=== PATIENT | male | born 1975 | race Caucasian/White ===

== ENCOUNTER 2023-10-08 12:56 | Emergency (ER) | payer MEDICAID, OTHER ==
[~2023-10-08] VITALS: Ht 165.1 cm; Wt 68.2 kg
[2023-10-08] MEDS: SODIUM CHLORIDE 0.9% 1,000 ML IV ONE (13:34)
[2023-10-08] MEDS ORDERED: CEPH250C PO (14:34)
[2023-10-08 14:49] VITALS: BP 138/89; PULSE 86; RESP 18; O2SAT 97
== END 2023-10-08 16:41 | disposition home or self-care (01) ==
LOC: EDBD 12:56 → ER 12:56
DX: S02.2XXA Fracture of nasal bones, initial encounter for closed fracture (principal); F10.129 Alcohol abuse with intoxication, unspecified; F17.210 Nicotine dependence, cigarettes, uncomplicated; F12.10 Cannabis abuse, uncomplicated; W18.09XA Striking against other object with subsequent fall, initial encounter; Y93.89 Activity, other specified; Y92.89 Other specified places as the place of occurrence of the external cause; Y99.8 Other external cause status; Y90.8 Blood alcohol level of 240 mg/100 ml or more
CPT/HCPCS: 36415; 70486; 80320; 96360; 99284; J7030

== ENCOUNTER 2024-04-20 10:39 | Inpatient (IN) | payer MEDICAID ==
[~2024-04-20] VITALS: Ht 165.1 cm; Wt 52.9 kg
[~2024-04-20 10:39] MED LIST: CEPH250C PO
[2024-04-20 11:05] LABS: Basophils # (auto) 0 10 ^3/uL (0-0.2); Basophils % (auto) 0.8 % (0.0-2.0); Eosinophils # (auto) 0 10 ^3/uL (0-0.8); Eosinophils % (auto) 0.8 % (0.0-7.0); Hematocrit 47.1 % (41.0-53.0); Hemoglobin 15.9 g/dL (13.5-17.5); Lymphocytes # (auto) 1.9 10 ^3/uL (0.4-5.4); Lymphocytes % (auto) 34.4 % (10.0-50.0); Mean Corpuscular Hemoglobin 30.3 pg (28.0-32.0); Mean Corpuscular Hgb Conc. 33.7 g/dL (32.0-36.0); Mean Corpuscular Volume 89.9 fL (80.0-100.0); Monocytes # (auto) 0.3 10 ^3/uL (0-1.3); Monocytes % (auto) 5.1 % (0.0-12.0); Neutrophils # (auto) 3.2 10 ^3/uL (1.6-8.6); Neutrophils % (auto) 58.9 % (37.0-80.0); Platelet Count (auto) 86 10^3/uL (140-450); Red Blood Cells 5.24 10^6/uL (4.5-5.90); Red Cell Distribution Width 14.4 % (11.8-14.3); White Blood Cell 5.4 10^3/uL (4.4-10.8)
[2024-04-20 11:15] LABS: INR 0.97 (0.9-1.15); Partial Thromboplastin Time 24.6 SEC (24.5-34.5); Prothrombin Time 10.3 sec (9.3-11.8)
--- NOTE | 2024-04-20 11:21 | DVH ---
EXAM: XY CHEST PORTABLE Indication: SOB Technique: Single frontal view of the chest was obtained Comparison: None FINDINGS: Lines and Tubes: None Lungs: No focal consolidation. Pleura: No effusion. No pneumothorax. Cardiomediastinal contours: Unremarkable Bones: No acute osseous abnormality. IMPRESSION: No acute cardiopulmonary disease.
--- NOTE | 2024-04-20 11:23 | ED.PDOC ---
SOB-HPI HPI Comments 49 year old male presents to the ED with chief complaint of SOB. Patient reports that she has been experiencing SOB with associated nasal congestion and cough for the past 4-5 days. Patient relays that she believes she has had a cold that has not gotten better. Patient admits to cigarette, marijuana, and ETOH use. Patient denies any fever, chills, N/V/D, dizziness, or chest pain. Chief Complaint: Shortness of Breath Time Seen by MD: 11:19 Primary Care Provider: NONE Reviewed notes: Nurses Notes, Medications, Allergies Information Source: Patient Mode of Arrival: EMS Severity: Moderate Timing: Days Duration: Since onset Context: At Rest PE Risk Factors: None History of: None Prehospital treatment: None Modifying Factors: Nothing Associated Signs and Symptoms: Cough, Nasal Congestion If cough with SOB: Non-Productive Past Medical History PAST MEDICAL HISTORY: Denies Surgical History: Hysterectomy, Tonsillectomy Family History Family History: Reviewed,noncontributory to illness, Unknown Social History Smoker: Cigarettes Alcohol: Heavy Drugs: Marijuana Lives In: Unknown Constitutional: denies: chills, diaphoresis, fatigue, fever, malaise, sweats, weakness, others EENTM: reports: nose congestion; denies: blurred vision, double vision, ear bleeding, ear discharge, ear drainage, ear pain, ear ringing, eye pain, eye redness, hearing loss, mouth pain, mouth swelling, nasal discharge, nose bl eeding, nose pain, photophobia, tearing, throat pain, throat swelling, voice changes, others Respiratory: reports: cough, shortness of breath; denies: hemoptysis, orthopnea, SOB at rest, SOB with excertion, stridor, wheezing, others Cardiovascular: denies: chest pain, dizzy spells, diaphoresis, Dyspnea on exertion, edema, irregular heart beat, left arm pain, lightheadedness, palpitations, PND, syncope, others Gastrointestinal: denies: abdomen distended, abdominal pain, blood streaked bowels, constipated, diarrhea, dysphagia, difficulty swallowing, hematemesis, melena, nausea, poor appetite, poor fluid intake, rectal bleeding, rectal pain, vomiting, others Genitourinary: denies: burning, dysuria, flank pain, frequency, hematuria, incontinence, penile discharge, penile sore, pain, testicle pain, testicle swelling, urgency, others Neurological: denies: dizziness, fainting, headache, left sided numbness, left sided weakness, numbness, paresthesia, pre-existing deficit, right sided numbness, right sided weakness, seizure, speech problems, tingling, tremors, weakness, others Musculoskeletal: denies: back pain, gout, joint pain, joint swelling, muscle pain, muscle stiffness, neck pain, others Integumetry: denies: bruises, change in color, change in hair/nails, dryness, laceration, lesions, lumps, rash, wounds, others Allergic/Immunocompromised: denies: Difficulty Healing, Frequent Infections, Hives, Itching, others Hematologic/Lymphatic: denies: anemia, blood clots, easy bleeding, easy bruising, swollen glands, others Endocrine: denies: excessive hunger, excessive sweating, excessive thirst, excessive urination, flushing, intolerance to cold, intolerance to heat, unexplained weight gain, unexplained weight loss, others Psychiatric: denies: anxiety, bipolar disorder, depression, hopeless, panic disorder, schizophrenia, sleepless, suicidal, others All Other Systems: Reviewed and Negative Physical Exam General Appearance: Moderate Distress, Normal HEENT: Normal ENT Inspection, PERRL/EOMI Neck: Full Range of Motion, Non-Tender, Normal, Normal Inspection Respiratory: Chest Non-Tender, No Accessory Muscle Use, Other (Coarse breath sounds) Cardiovascular: No Edema, No JVD, No Murmur, No Gallop, Normal Peripheral Pulses, Regular Rate/Rhythm Breast Exam: Deferred Gastrointestinal: No Organomegaly, Non Tender, No Pulsatile Mass, Normal Bowel Sounds, Soft Genitalia: Deferred Pelvic: Deferred Rectal: Deferred Extremities: No calf tenderness, Normal capillary refill, Normal inspection, N ormal range of motion, Non-tender, No pedal edema Musculoskeletal : Apperance: Normal 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 Was a procedure done?: No Differential Dx Differential Diagnosis: Anxiety, Asthma, Bronchitis, CHF, COPD, Pneumonia, URI X-Ray, Labs, Meds, VS Vital Signs Date Time Temp Pulse Resp B/P (MAP) Pulse Ox O2 Delivery O2 Flow Rate FiO2 04/20/24 16:00 98.3 93 18 128/87 98 0.0 21 98.3 04/20/24 13:10 98.3 102 18 128/87 (101) 96 98.3 04/20/24 11:14 98.1 109 17 126/84 (98) 98 98.1 04/20/24 11:14 109 17 98 Room Air 04/20/24 10:42 98.4 89 16 112/78 (89) 98 04/20/24 10:42 16 98 Room Air* 0 21 Lab Test 04/20/24 11:23 04/20/24 10:50 Range/Units Urine Color Yellow Yellow Urine Clarity Turbid H Clear Urine pH 6.0 5.0-9.0 Urine Specific [place] 1.019 1.001-1.035 Urine Protein 2+ H Negative Urine Ketones Trace Negative Urine Blood 1+ H Negative /uL Urine Nitrite Negative Negative Urine Bilirubin Negative Negative Urine Urobilinogen Normal Negative mg/dL Urine Leukocyte Esterase 2+ Negative /uL Urine RBC 12 0 - 3 /hpf Urine WBC 11 0 - 3 /hpf Urine Squamous Epithelial Cells Many <5 /hpf Urine Bacteria None seen None Seen /hpf Urine Hyaline Casts Few 0 - 2 /lpf Urine Mucus Few None Seen Urine Glucose Normal Normal mg/dL Urine Opiates Screen Neg NEGATIVE Urine Fentanyl Screen Neg NEGATIVE Urine Barbiturates Screen Neg NEGATIVE Urine Phencyclidine Screen Neg NEGATIVE Urine Amphetamines Screen Neg NEGATIVE Urine Benzodiazepines Screen Neg NEGATIVE Urine Cocaine Screen Neg NEGATIVE Urine Cannabinoids Screen Pos NEGATIVE White Blood Count 5.4 4.4-10.8 10^3/uL Red Blood Count 5.24 4.5-5.90 10^6/uL Hemoglobin 15.9 13.5-17.5 g/dL Hematocrit 47.1 41.0-53.0 % Mean Corpuscular Volume 89.9 80.0-100.0 fL Mean Corpuscular Hemoglobin 30.3 28.0-32.0 pg Mean Corpuscular Hemoglobin Concent 33.7 32.0-36.0 g/dL Red Cell Distribution Width 14.4 H 11.8-14.3 % Platelet Count 86 L 140-450 10^3/uL Mean Platelet Volume 8.6 6.9-10.8 fL Neutrophils (%) (Auto) 58.9 37.0-80.0 % Lymphocytes (%) (Auto) 34.4 10.0-50.0 % Monocytes (%) (Auto) 5.1 0.0-12.0 % Eosinophils (%) (Auto) 0.8 0.0-7.0 % Basophils (%) (Auto) 0.8 0.0-2.0 % Neutrophils # (Auto) 3.2 1.6-8.6 10 ^3/uL Lymphocytes # (Auto) 1.9 0.4-5.4 10 ^3/uL Monocytes # (Auto) 0.3 0-1.3 10 ^3/uL Eosinophils # (Auto) 0 0-0.8 10 ^3/uL Basophils # (Auto) 0 0-0.2 10 ^3/uL Nucleated Red Blood Cells 0.0 % Prothrombin Time 10.3 9.3-11.8 sec Prothrombin Time INR 0.97 0.9-1.15 Activated Partial Thromboplast Time 24.6 24.5-34.5 SEC Sodium Level 139 136-145 mmol/L Potassium Level 3.1 L 3.5-5.1 mmol/L Chloride Level 97 L 98-107 mmol/L Carbon Dioxide Level 31 20-31 mmol/L Anion Gap 11 5-15 Blood Urea Nitrogen 12 9-23 mg/dL Creatinine 0.81 0.700-1.30 mg/dL Glomerular Filtration Rate Calc 107 >90 mL/min BUN/Creatinine Ratio 14.8 10.0-20.0 Serum Glucose 112 H 74-106 mg/dL Calcium Level 10.0 8.7-10.4 mg/dL Magnesium Level 2.1 1.6-2.6 mg/dL Total Bilirubin 0.7 0.2-1.0 mg/dL Aspartate Amino Transferase (AST) 209 H 13-40 U/L Alanine Aminotransferase (ALT) 93 H 7-40 U/L Alkaline Phosphatase 123 H 46-116 U/L Troponin I High Sensitivity 4 </=54 ng/L Total Protein 7.6 5.7-8.2 g/dL Albumin 4.7 3.2-4.8 g/dL Plasma/Serum Blood Alcohol 423.1 *H <10 mg/dL Current Medications Medications (Trade) Dose Ordered Sig/Nora Route Start Time Stop Time Status Last Admin Thiamine HCl 100 mg ONCE ONCE IV 04/20/24 11:45 04/20/24 11:46 DC 04/20/24 12:12 Sodium Chloride 1,000 ml @ 1,000 mls/hr Q1H ONCE IV 04/20/24 11:45 04/20/24 12:44 DC 04/20/24 12:12 Ceftriaxone Sodium 50 ml @ 100 mls/hr DAILY IV 04/20/24 14:15 04/20/24 16:48 Ondansetron HCl (Zofran) 4 mg ONCE ONCE IV 04/20/24 14:15 04/20/24 14:32 DC 04/20/24 16:47 Sodium Chloride 1,000 ml @ 250 mls/hr Q4H ONCE IV 04/20/24 14:15 04/20/24 18:14 04/20/24 16:49 Thiamine HCl 100 mg NOW ONCE PO 04/20/24 14:15 04/20/24 14:32 DC 04/20/24 16:47 Multivitamins (Mvi Tab) 1 tab NOW ONCE PO 04/20/24 14:15 04/20/24 14:32 DC 04/20/24 16:47 Folic Acid 1 mg NOW ONCE PO 04/20/24 14:15 04/20/24 14:32 DC 04/20/24 16:47 Lorazepam (Ativan Inj) 1 mg Q4H IV 04/20/24 14:15 04/20/24 16:48 Chest XR: FINDINGS: Lines and Tubes: None Lungs: No focal consolidation. Pleura: No effusion. No pneumothorax. Cardiomediastinal contours: Unremarkable Bones: No acute osseous abnormality. IMPRESSION: No acute cardiopulmonary disease. Patient alert. Came in because of cough. Vitals stable. Answering all questions. Blood alcohol level lateral. Continues to smoke cigarettes. Counseled patient on effects of smoking cigarettes for 15 minutes. Counseled patient on effects of drinking for 15 minutes. Liver profile elevated. Explained to the patient. Continue cardiac monitoring. Time of 1ST Reevaluation: 12:19 Reevaluation 1ST: Unchanged Patient Education/Counseling: Diagnosis, Treatment, Prognosis, Need For Follow Up Family Education/Counseling: No Family Present Departure 1 Departure Time of Disposition: 15:43 Impression: Primary Impression: Alcohol intoxication Qualified Codes: F10.920 - Alcohol use, unspecified with intoxication, uncomplicated Additional Impression: Alcohol abuse Disposition: ADMITTED INPATIENT Admit to: Med Surg Condition: Guarded Critical Care Note Critical Care Time?: Yes (45 min-critical care time only) Stability Stability form required: No Heart Score Heart Score: Heart Score Response (Comments) Value History N/A 0 EKG N/A 0 Age N/A 0 Risk Factors N/A 0 Troponin N/A 0 Total 0 I personally scribed for ILIANA BECKHAM MD ([email or web address]) on 04/20/24 at 11:23. Electronically submitted by Doug Elias ([email or web address]). I personally scribed for ILIANA BECKHAM MD ([email or web address]) on 04/20/24 at 11:45. Electronically submitted by Doug Elias ([email or web address]). ILIANA BECKHAM MD Apr 20, 2024 11:23
[2024-04-20 11:27] LABS: Albumin 4.7 g/dL (3.2-4.8); Anion Gap 11 (5-15); BUN/Creatinine Ratio 14.8 (10.0-20.0); Blood Urea Nitrogen 12 mg/dL (9-23); Carbon Dioxide 31 mmol/L (20-31); Magnesium 2.1 mg/dL (1.6-2.6); Sodium 139 mmol/L (136-145)
[2024-04-20 11:28] LABS: Bilirubin, Total 0.7 mg/dL (0.2-1.0); Total Protein 7.6 g/dL (5.7-8.2)
[2024-04-20 11:29] LABS: Alanine Aminotransferase 93 U/L (7-40); Alkaline Phosphatase 123 U/L (46-116); Aspartate Aminotransferase 209 U/L (13-40); Chloride 97 mmol/L (98-107); Glucose 112 mg/dL (74-106); Potassium 3.1 mmol/L (3.5-5.1)
[2024-04-20 11:43] LABS: Blood Alcohol 423.1 mg/dL (<10)
[2024-04-20 11:47] LABS: Urine Bacteria None Seen /hpf (None Seen)
[2024-04-20] MEDS: SODIUM CHLORIDE 0.9% 1,000 ML IV ONE ×3 (11:47→16:49)
[2024-04-20 12:03] LABS: Urine Blood 1+ /uL (Negative); Urine Clarity Turbid (Clear); Urine Hyaline Cast FEW /lpf (0 - 2); Urine Mucus FEW (None Seen); Urine Protein, UAD 2+ (Negative); Urine Specific Gravity 1.019 (1.001-1.035); Urine Urobilinogen Normal (Negative); Urine WBC 11 /hpf (0 - 3)
[2024-04-20 12:05] LABS: Urine Color Yellow (Yellow)
[2024-04-20] MEDS: THIAMINE 100mg/ml INJ (200mg/2ml VIAL) IV ONE (12:12)
[2024-04-20 12:15] LABS: Amphetamine Screen, Urine Neg (NEGATIVE)
[2024-04-20 12:17] LABS: Benzodiazephine Screen, Urine Neg (NEGATIVE); Cannabinoid Screen, Urine Pos (NEGATIVE)
[2024-04-20 12:23] LABS: Barbiturate Scree,Urine Neg (NEGATIVE); Cocaine Screen, Urine Neg (NEGATIVE); Opiate Scree,Urine Neg (NEGATIVE); Phencyclidine Screen, Urine Neg (NEGATIVE)
[2024-04-20] MEDS ORDERED: IPRATROPIUM BROM 0.5 MG/2.5ML INH SOL NEB PRN (14:15)
[2024-04-20] MEDS ORDERED: LORazepam 2MG/ML-1ML VIAL IV PRN (14:15)
[2024-04-20] MEDS ORDERED: ALBUTEROL SULF 2.5 MG/0.5ML(0.5%) NEB SOLN NEB PRN (14:15)
--- NOTE | 2024-04-20 14:30 | DVHHP2 ---
History of Present Illness Reason for Visit: shortness of breath History of Present Illness 48-year-old patient comes in with complaints of shortness of breath cough cold fevers chills last 5 days patient's since that she has been having issues with feeling feeling better currently does use 70 substances including being a smoker patient is using marijuana patient having alcohol abuse at this point in time there is no confirmed history of patient having COPD as she denies also says that now has no history of serum alcohol abuse but does use heavily on a regular basis patient will be admitted for evaluation shortness of breath as per ED magnesium Cardiovascular: HTN Pulmonary: COPD, Pneumonia Review of Systems Constitutional: Yes: Fever; No: Chills, Sweats, Weakness, Malaise, Other Eyes: No: Pain, Vision change, Conjunctivae inflammation, Eyelid inflammation, Other, Redness ENT: No: Ear pain, Ear discharge, Nose pain, Nose discharge, Nose congestion, Mouth pain, Mouth swelling, Throat pain, Throat swelling, Other Respiratory: Cough, Shortness of breath; No: Dry, SOB with excertion, Wheezing, Hemoptysis, Pleuritic Pain, Sputum, Wheezing, Other Cardiovascular: Chest Pain, Palpitations; No: Orthopnea, Paroxysmal Noc. Dyspnea, Edema, Lt Headedness, Other Gastrointestinal: No: Nausea, Vomiting, Abdominal Pain, Diarrhea, Constipation, Melena, Hematochezia, Other Genitourinary: No Dysuria, No Frequency, No Incontinence, No Hematuria, No Retention, No Other Musculoskeletal: No: other, neck pain, shoulder pain, arm pain, back pain, hand pain, leg pain, foot pain Skin: No: Rash, Lesions, Jaundice, Bruising, Other Neurological: No: Weakness, Numbness, Incoordination, Change in speech, Confusion, Seizures, Other Allergies: Coded Allergies: NO KNOWN ALLERGIES (Unverified , 10/08/23) Exam Vital Signs Vital Signs Date Time Temp Pulse Resp B/P (MAP) Pulse Ox O2 Delivery O2 Flow Rate FiO2 04/20/24 13:10 98.3 102 18 128/87 (101) 96 98.3 04/20/24 11:14 Room Air 04/20/24 10:42 0 21 General Appearance: Alert, Oriented X3, moderate distress HEENT: Atraumatic, PERRLA Respiratory: Clear to auscultation, Normal air movement Cardiovascular: Regular rate, Normal S1, Normal S2 Abdominal: Normal bowel sounds, No tenderness Extremities: No clubbing, No cyanosis Skin: No rashes, No breakdown Psych/Mental Status: Mental status NL (Altered mentation secondary to EtOH) Labs/Xrays Labs Test 04/20/24 11:23 04/20/24 10:50 Range/Units Urine Color Yellow Yellow Urine Clarity Turbid H Clear Urine pH 6.0 5.0-9.0 Urine Specific [place] 1.019 1.001-1.035 Urine Protein 2+ H Negative Urine Ketones Trace Negative Urine Blood 1+ H Negative /uL Urine Nitrite Negative Negative Urine Bilirubin Negative Negative Urine Urobilinogen Normal Negative mg/dL Urine Leukocyte Esterase 2+ Negative /uL Urine RBC 12 0 - 3 /hpf Urine WBC 11 0 - 3 /hpf Urine Squamous Epithelial Cells Many <5 /hpf Urine Bacteria None seen None Seen /hpf Urine Hyaline Casts Few 0 - 2 /lpf Urine Mucus Few None Seen Urine Glucose Normal Normal mg/dL Urine Opiates Screen Neg NEGATIVE Urine Fentanyl Screen Neg NEGATIVE Urine Barbiturates Screen Neg NEGATIVE Urine Phencyclidine Screen Neg NEGATIVE Urine Amphetamines Screen Neg NEGATIVE Urine Benzodiazepines Screen Neg NEGATIVE Urine Cocaine Screen Neg NEGATIVE Urine Cannabinoids Screen Pos NEGATIVE White Blood Count 5.4 4.4-10.8 10^3/uL Red Blood Count 5.24 4.5-5.90 10^6/uL Hemoglobin 15.9 13.5-17.5 g/dL Hematocrit 47.1 41.0-53.0 % Mean Corpuscular Volume 89.9 80.0-100.0 fL Mean Corpuscular Hemoglobin 30.3 28.0-32.0 pg Mean Corpuscular Hemoglobin Concent 33.7 32.0-36.0 g/dL Red Cell Distribution Width 14.4 H 11.8-14.3 % Platelet Count 86 L 140-450 10^3/uL Mean Platelet Volume 8.6 6.9-10.8 fL Neutrophils (%) (Auto) 58.9 37.0-80.0 % Lymphocytes (%) (Auto) 34.4 10.0-50.0 % Monocytes (%) (Auto) 5.1 0.0-12.0 % Eosinophils (%) (Auto) 0.8 0.0-7.0 % Basophils (%) (Auto) 0.8 0.0-2.0 % Neutrophils # (Auto) 3.2 1.6-8.6 10 ^3/uL Lymphocytes # (Auto) 1.9 0.4-5.4 10 ^3/uL Monocytes # (Auto) 0.3 0-1.3 10 ^3/uL Eosinophils # (Auto) 0 0-0.8 10 ^3/uL Basophils # (Auto) 0 0-0.2 10 ^3/uL Nucleated Red Blood Cells 0.0 % Prothrombin Time 10.3 9.3-11.8 sec Prothrombin Time INR 0.97 0.9-1.15 Activated Partial Thromboplast Time 24.6 24.5-34.5 SEC Sodium Level 139 136-145 mmol/L Potassium Level 3.1 L 3.5-5.1 mmol/L Chloride Level 97 L 98-107 mmol/L Carbon Dioxide Level 31 20-31 mmol/L Anion Gap 11 5-15 Blood Urea Nitrogen 12 9-23 mg/dL Creatinine 0.81 0.700-1.30 mg/dL Glomerular Filtration Rate Calc 107 >90 mL/min BUN/Creatinine Ratio 14.8 10.0-20.0 Serum Glucose 112 H 74-106 mg/dL Calcium Level 10.0 8.7-10.4 mg/dL Magnesium Level 2.1 1.6-2.6 mg/dL Total Bilirubin 0.7 0.2-1.0 mg/dL Aspartate Amino Transferase (AST) 209 H 13-40 U/L Alanine Aminotransferase (ALT) 93 H 7-40 U/L Alkaline Phosphatase 123 H 46-116 U/L Troponin I High Sensitivity 4 </=54 ng/L Total Protein 7.6 5.7-8.2 g/dL Albumin 4.7 3.2-4.8 g/dL Plasma/Serum Blood Alcohol 423.1 *H <10 mg/dL Assessment/Plan Assessment/Plan Admit to telemetry ETOH abuse with signs of acute intoxication Well with the 400 patient has a risk for acute withdrawal Currently patient has not in acute withdrawal but only acutely intoxicated We will follow up with protocol CIWA score Patient will have p.r.n. medications including Ativan for when or if withdrawal start the current If patient does go into acute withdrawal plan for agreed to IC or JULIANNA as necessary P.r.n. Ativan Daily folic acid Daily thiamine P.r.n. Haldol for severe agitation or delirium Shortness of breath Possible community-acquired pneumonia versus aspiration pneumonia We will place patient on antibiotics prophylactically IV ceftriaxone p.o. azithromycin Monitor q.d. for acute changes P.r.n. breathing treatments Patient was mildly elevated blood glucose T.i.d. sliding scale IV hydration with a cute plan to flush patient's current alcohol level Plan discussed with: Patient Problem List: (1) Alcohol intoxication (2) ETOH abuse (3) Community acquired pneumonia Date of Service: Apr 20, 2024 Billing Provider: FERNANDO TROTTER MD Common Visit Codes: [id number] INP/OBS CARE (HIGH) FERNANDO TROTTER MD Apr 20, 2024 14:30
[2024-04-20 16:00] VITALS: BP 128/87; PULSE 93; RESP 18; TEMP 98.3; O2SAT 98
[2024-04-20] MEDS: MULTIPLE VITAMIN TAB PO ONE (16:47)
[2024-04-20] MEDS: LORazepam 2MG/ML-1ML VIAL IV ONE (16:47)
[2024-04-20] MEDS: THIAMINE HCL 100 MG TAB PO ONE (16:47)
[2024-04-20] MEDS: FOLIC ACID 1 MG TAB PO ONE (16:47)
[2024-04-20] MEDS: ONDANSETRON HCL 4 MG/2 ML VIAL IV ONE (16:47)
[2024-04-20] MEDS: LORazepam 2MG/ML-1ML VIAL IV SCH (16:48)
[2024-04-20] MEDS: cefTRIAXone 1GM/50ML D5W 50 ML IV SCH (16:48)
[2024-04-20 16:57] VITALS: PULSE 98; RESP 18; O2SAT 96
[2024-04-20] MEDS ORDERED: METO10TA4 PO (17:44)
[2024-04-20 18:23] VITALS: O2SAT 98
[2024-04-20] MEDS ORDERED: TEMAZEPAM 15 MG CAP PO PRN (20:00)
[2024-04-20] MEDS ORDERED: MORPHINE SULFATE INJ 2 MG/ml SYRG IV PRN (20:00)
[2024-04-20] MEDS ORDERED: DOCUSATE SOD 100 MG CAP PO PRN (20:00)
[2024-04-20] MEDS ORDERED: LORazepam 0.5 MG TAB PO PRN (20:00)
[2024-04-20] MEDS ORDERED: MAALOX PLUS or MAALOX 30 ML PO PRN (20:00)
[2024-04-20] MEDS ORDERED: ACETAMINOPHEN 325 MG TAB PO PRN (20:00)
[2024-04-20] MEDS: SODIUM CHLORIDE 0.9% 1,000 ML IV SCH (21:00)
[2024-04-20] MEDS: HALOPERIDOL LACTATE 5 MG/ML INJ VIAL IM PRN (21:51)
[2024-04-20 22:32] VITALS: PULSE 100; RESP 14; O2SAT 96
[2024-04-20 23:48] VITALS: PULSE 90
[2024-04-21] VITALS (9 sets, daily range): BP systolic 109–140; BP diastolic 51–89; PULSE 85–95; RESP 14–17; TEMP 98.1–98.6; O2SAT 95–98
[2024-04-21 07:18] LABS: Calcium 9.4 mg/dL (8.7-10.4); Chloride 99 mmol/L (98-107); Potassium 3.5 mmol/L (3.5-5.1); Sodium 138 mmol/L (136-145)
[2024-04-21 07:19] LABS: Anion Gap 9 (5-15); Carbon Dioxide 30 mmol/L (20-31)
[2024-04-21 07:22] LABS: Basophils # (auto) 0 10 ^3/uL (0-0.2); Eosinophils # (auto) 0.1 10 ^3/uL (0-0.8); Lymphocytes # (auto) 1.3 10 ^3/uL (0.4-5.4); Monocytes # (auto) 0.3 10 ^3/uL (0-1.3); Monocytes % (auto) 5.7 % (0.0-12.0); Neutrophils # (auto) 2.8 10 ^3/uL (1.6-8.6); White Blood Cell 4.5 10^3/uL (4.4-10.8)
[2024-04-21 07:24] LABS: Blood Urea Nitrogen 9 mg/dL (9-23)
[2024-04-21 07:25] LABS: Basophils % (auto) 0.7 % (0.0-2.0); Eosinophils % (auto) 2.7 % (0.0-7.0); Hematocrit 39.7 % (36.0-46.0); Hemoglobin 13.4 g/dL (12.2-16.2); Lymphocytes % (auto) 29.3 % (10.0-50.0); Mean Corpuscular Hemoglobin 30.4 pg (28.0-32.0); Mean Corpuscular Hgb Conc. 33.6 g/dL (32.0-36.0); Mean Corpuscular Volume 90.3 fL (80.0-100.0); Neutrophils % (auto) 61.6 % (37.0-80.0); Nucleated Red Blood Cells % 0.1 %; Platelet Count (auto) 44 10^3/uL (140-450)
[2024-04-21 07:52] LABS: Glucose 71 mg/dL (74-106)
[2024-04-21] MEDS: FOLIC ACID 1 MG TAB PO SCH (12:59)
[2024-04-21] MEDS: chlordiazePOXIDE HCL 25 MG CAP PO SCH (12:59)
[2024-04-21] MEDS: AZITHROMYCIN 250 MG TAB PO SCH (12:59)
[2024-04-21] MEDS: THIAMINE HCL 100 MG TAB PO SCH (12:59)
[2024-04-21] MEDS: MULTIPLE VITAMIN TAB PO SCH (14:33)
[2024-04-21] MEDS: HYDROcodone-ACET 5/325MG TAB PO PRN (14:44)
--- NOTE | 2024-04-21 14:56 | DVHPN2 ---
Assessment/Plan Assessment/Plan Progress note Subjective 49-year-old female admitted for alcohol intoxication/alcohol withdrawal, patient reported last drink was prior to admission, drinks a 5th of vodka daily, has been drinking daily for the past month, has history of DT in the past requiring admission to ICU. Patient also smokes cigarette 1 pack per day for the past 40 years. Seen today by me during rounds, CIWA 0 Objective Physical exam Alert, oriented x3 PERRLA No JVD Clear breath sounds bilaterally S1-S2 regular rate and rhythm no murmur Abdomen soft nontender, no organomegaly Moving all four extremities No lower extremity edema, no tremors Lab AST 209 ALT 93 Potassium 3.1 Imaging Chest x-ray clear Assessment and plan Alcohol intoxication Alcohol withdrawal Viral URI History of DT Tobacco use Transaminitis Hypokalemia CIVT protocol, p.r.n. Ativan, scheduled Ativan Hold Librium for now, start Librium tomorrow Seizure precaution, patient has history of seizures and DT Nicotine patch Follow LFT Discontinue Z-Van, ceftriaxone Repeat potassium and phosphate High-dose thiamine and folate Avoid opiates 10 minutes spent discussing about smoking cessation Replete electrolytes Diet regular DVT prophylaxis ambulatory Plan discussed with: Patient Date of Service: Apr 21, 2024 Billing Provider: DANIEL KLEIN MD Common Visit Codes: [id number] INP/OBS CARE(HIGH) Secondary Visit Codes: [id number] CHNG SMOKING >10MIN DANIEL KLEIN MD Apr 21, 2024 14:56
[2024-04-21] MEDS: POTASSIUM PHOSPHATE 44 MEQ in D5W 5% 250 ML IV ONE (15:00)
[2024-04-22] VITALS (7 sets, daily range): BP systolic 116–128; BP diastolic 78–90; PULSE 76–101; RESP 12–20; TEMP 97.5–98.2; O2SAT 96–98
[2024-04-22 07:01] LABS: Basophils # (auto) 0 10 ^3/uL (0-0.2); Basophils % (auto) 0.7 % (0.0-2.0); Eosinophils # (auto) 0.2 10 ^3/uL (0-0.8); Hemoglobin 13.4 g/dL (12.2-16.2); Lymphocytes # (auto) 1.2 10 ^3/uL (0.4-5.4); Monocytes # (auto) 0.2 10 ^3/uL (0-1.3); Neutrophils % (auto) 55.9 % (37.0-80.0); Platelet Count (auto) 41 10^3/uL (140-450)
[2024-04-22 07:03] LABS: Eosinophils % (auto) 4.3 % (0.0-7.0); Hematocrit 38.8 % (36.0-46.0); Lymphocytes % (auto) 33.3 % (10.0-50.0); Mean Corpuscular Hemoglobin 30.5 pg (28.0-32.0); Mean Corpuscular Hgb Conc. 34.4 g/dL (32.0-36.0); Mean Corpuscular Volume 88.5 fL (80.0-100.0); Monocytes % (auto) 5.8 % (0.0-12.0); Nucleated Red Blood Cells % 0.1 %; Red Blood Cells 4.39 10^6/uL (4.0-5.20); Red Cell Distribution Width 13.6 % (11.8-14.3); White Blood Cell 3.6 10^3/uL (4.4-10.8)
[2024-04-22 07:28] LABS: Anion Gap 7 (5-15); Carbon Dioxide 30 mmol/L (20-31); Potassium 3.7 mmol/L (3.5-5.1)
[2024-04-22 07:29] LABS: Calcium 10.2 mg/dL (8.7-10.4)
[2024-04-22 07:34] LABS: BUN/Creatinine Ratio 11.5 (10.0-20.0)
[2024-04-22 07:35] LABS: Blood Urea Nitrogen 7 mg/dL (9-23); Chloride 97 mmol/L (98-107); Glucose 113 mg/dL (74-106); Magnesium 1.4 mg/dL (1.6-2.6); Sodium 134 mmol/L (136-145)
[2024-04-22 07:36] LABS: Phosphorus 3.8 mg/dL (2.4-5.1)
[2024-04-22] MEDS: THIAMINE 100mg/ml INJ (200mg/2ml VIAL) IV SCH (08:25)
[2024-04-22] MEDS: ONDANSETRON HCL 4 MG/2 ML VIAL IV PRN (08:53)
[2024-04-22] MEDS: FOLIC ACID 1 MG in D5W 5% 50 ML INJ SCH (08:54)
[2024-04-22 09:17] LABS: Anisocytosis Slight; Macrocytosis Slight; Platelet Estimate Decreased
--- NOTE | 2024-04-22 12:17 | DVHPN2 ---
Eyes: No Pain, No Vision change, No Conjunctivae inflammation, No Eyelid inflammation, No Other, No Redness ENT: No Ear pain, No Ear discharge, No Nose pain, No Nose discharge, No Nose congestion, No Mouth pain, No Mouth swelling, No Throat pain, No Throat swelling, No Other Cardiovascular: Chest Pain, Palpitations; No Orthopnea, No Paroxysmal Noc. Dyspnea, No Edema, No Lt Headedness, No Other Respiratory: Cough; No Dry; Shortness of breath; No SOB with excertion, No Wheezing, No Hemoptysis, No Pleuritic Pain, No Sputum, No Other Gastrointestinal: No Nausea, No Vomiting, No Abdominal Pain, No Diarrhea, No Constipation, No Melena, No Hematochezia, No Other Genitourinary: No Dysuria, No Frequency, No Incontinence, No Hematuria, No Retention, No Other Musculoskeletal: No other, No neck pain, No shoulder pain, No arm pain, No back pain, No hand pain, No leg pain, No foot pain Skin: No Rash, No Lesions, No Jaundice, No Bruising, No Other Objective Vitals Vital Signs Date Time Temp Pulse Resp B/P (MAP) Pulse Ox O2 Delivery O2 Flow Rate FiO2 04/22/24 12:00 98 Room Air* 0 21 04/22/24 09:00 97.5 92 20 116/78 (91) 97.5 Intake/Output Intake and Output 04/22/24 07:00 Intake Total 1498 ml Balance 1498 ml Intake Oral 1498 ml # Voids 12 Medications Current Medications Medications Dose Ordered Sig/Nora Route Start Time Stop Time Status Last Admin Dose Admin Azithromycin 500 mg DAILY PO 04/21/24 10:00 04/22/24 08:24 500 MG Chlordiazepoxide HCl 50 mg DAILY PO 04/21/24 10:00 04/22/24 08:23 50 MG Multivitamins 1 tab DAILY PO 04/21/24 10:00 04/22/24 08:24 1 TAB Lorazepam 1 mg Q4H IV 04/20/24 14:15 04/22/24 08:25 1 MG Lorazepam 1 mg Q2HPRN PRN IV 04/20/24 14:15 Albuterol 2.5 mg Q4HR PRN NEB 04/20/24 14:15 Ipratropium [place] 0.5 mg Q4HPRN PRN NEB 04/20/24 14:15 Al Hydrox/Mg Hydrox/Simethicone 30 ml Q6HP PRN PO 04/20/24 20:00 Ondansetron HCl 4 mg Q4HP PRN IV 04/20/24 20:00 04/22/24 08:53 4 MG Thiamine HCl 100 mg DAILY IV 04/22/24 10:00 04/22/24 08:25 100 MG Folic Acid 1 mg/ Dextrose 50.2 ml @ 200.8 mls/ hr DAILY INJ 04/22/24 10:00 04/22/24 08:54 200.8 MLS/HR Laboratory Results Laboratory Tests 04/22/24 06:22 Chemistry Test 04/22/24 06:22 Calcium Level 10.2 mg/dL (8.7-10.4) Magnesium Level 1.4 mg/dL (1.6-2.6) L Phosphorus Level 3.8 mg/dL (2.4-5.1) Urinalysis Test 04/20/24 11:23 Urine Color Yellow (Yellow) Urine Clarity Turbid (Clear) H Urine pH 6.0 (5.0-9.0) Urine Specific [place] 1.019 (1.001-1.035) Urine Protein 2+ (Negative) H Urine Ketones Trace (Negative) Urine Blood 1+ /uL (Negative) H Urine Nitrite Negative (Negative) Urine Bilirubin Negative (Negative) Urine Urobilinogen Normal mg/dL (Negative) Urine Leukocyte Esterase 2+ /uL (Negative) Urine RBC 12 /hpf (0 - 3) Urine WBC 11 /hpf (0 - 3) Urine Squamous Epithelial Cells Many /hpf (<5) Urine Bacteria None seen /hpf (None Seen) Urine Hyaline Casts Few /lpf (0 - 2) Urine Mucus Few (None Seen) Urine Glucose Normal mg/dL (Normal) VICKY MANZO MD Apr 22, 2024 12:17
--- NOTE | 2024-04-24 14:13 | DVHDS2 ---
Discharge Summary Date of Admission Apr 20, 2024 at 19:54 Date of Discharge: Apr 22, 2024 Admitting Diagnosis ETOH abuse with signs of acute intoxication Shortness of breath Possible community-acquired pneumonia versus aspiration pneumonia Labs/Diagnostic Data: Laboratory Results Test 04/22/24 06:22 04/20/24 11:23 04/20/24 10:50 White Blood Count 3.6 10^3/uL (4.4-10.8) Red Blood Count 4.39 10^6/uL (4.0-5.20) Hemoglobin 13.4 g/dL (12.2-16.2) Hematocrit 38.8 % (36.0-46.0) Mean Corpuscular Volume 88.5 fL (80.0-100.0) Mean Corpuscular Hemoglobin 30.5 pg (28.0-32.0) Mean Corpuscular Hemoglobin Concent 34.4 g/dL (32.0-36.0) Red Cell Distribution Width 13.6 % (11.8-14.3) Platelet Count 41 10^3/uL (140-450) Mean Platelet Volume 9.2 fL (6.9-10.8) Neutrophils (%) (Auto) 55.9 % (37.0-80.0) Lymphocytes (%) (Auto) 33.3 % (10.0-50.0) Monocytes (%) (Auto) 5.8 % (0.0-12.0) Eosinophils (%) (Auto) 4.3 % (0.0-7.0) Basophils (%) (Auto) 0.7 % (0.0-2.0) Neutrophils # (Auto) 2.0 10 ^3/uL (1.6-8.6) Lymphocytes # (Auto) 1.2 10 ^3/uL (0.4-5.4) Monocytes # (Auto) 0.2 10 ^3/uL (0-1.3) Eosinophils # (Auto) 0.2 10 ^3/uL (0-0.8) Basophils # (Auto) 0 10 ^3/uL (0-0.2) Nucleated Red Blood Cells 0.1 % Platelet Estimate Decreased Anisocytosis (manual) Slight Macrocytosis Slight Sodium Level 134 mmol/L (136-145) Potassium Level 3.7 mmol/L (3.5-5.1) Chloride Level 97 mmol/L (98-107) Carbon Dioxide Level 30 mmol/L (20-31) Anion Gap 7 (5-15) Blood Urea Nitrogen 7 mg/dL (9-23) Creatinine 0.61 mg/dL (0.550-1.02) Glomerular Filtration Rate Calc 108 mL/min (>90) BUN/Creatinine Ratio 11.5 (10.0-20.0) Serum Glucose 113 mg/dL (74-106) Calcium Level 10.2 mg/dL (8.7-10.4) Phosphorus Level 3.8 mg/dL (2.4-5.1) Magnesium Level 1.4 mg/dL (1.6-2.6) Urine Color Yellow (Yellow) Urine Clarity Turbid (Clear) Urine pH 6.0 (5.0-9.0) Urine Specific [place] 1.019 (1.001-1.035) Urine Protein 2+ (Negative) Urine Ketones Trace (Negative) Urine Blood 1+ /uL (Negative) Urine Nitrite Negative (Negative) Urine Bilirubin Negative (Negative) Urine Urobilinogen Normal mg/dL (Negative) Urine Leukocyte Esterase 2+ /uL (Negative) Urine RBC 12 /hpf (0 - 3) Urine WBC 11 /hpf (0 - 3) Urine Squamous Epithelial Cells Many /hpf (<5) Urine Bacteria None seen /hpf (None Seen) Urine Hyaline Casts Few /lpf (0 - 2) Urine Mucus Few (None Seen) Urine Glucose Normal mg/dL (Normal) Urine Opiates Screen Neg (NEGATIVE) Urine Fentanyl Screen Neg (NEGATIVE) Urine Barbiturates Screen Neg (NEGATIVE) Urine Phencyclidine Screen Neg (NEGATIVE) Urine Amphetamines Screen Neg (NEGATIVE) Urine Benzodiazepines Screen Neg (NEGATIVE) Urine Cocaine Screen Neg (NEGATIVE) Urine Cannabinoids Screen Pos (NEGATIVE) Prothrombin Time 10.3 sec (9.3-11.8) Prothrombin Time INR 0.97 (0.9-1.15) Activated Partial Thromboplast Time 24.6 SEC (24.5-34.5) Total Bilirubin 0.7 mg/dL (0.2-1.0) Aspartate Amino Transferase (AST) 209 U/L (13-40) Alanine Aminotransferase (ALT) 93 U/L (7-40) Alkaline Phosphatase 123 U/L (46-116) Troponin I High Sensitivity 4 ng/L (</=54) Total Protein 7.6 g/dL (5.7-8.2) Albumin 4.7 g/dL (3.2-4.8) Plasma/Serum Blood Alcohol 423.1 mg/dL (<10) Other Laboratory Tests 04/22/24 06:22 Brief Hx & Hospital Course: This is a 49 years old female come into emergency department with chief complaint of shortness for breath, cough, cold, subjective fever and chills for five days. Patient had been using marijuana on and off for five days and had drinking a lot. The patient is doing about 12 pack of beer per day. The patient was admitted for alcohol withdrawal. The patient also admits that she smoked marijuana on and off. The patient was put on Ativan, Haldol, banana bag and IV fluid resuscitation. Today the patient stated that she does not want to stay anymore. The patient verbally understands that she still in alcohol withdrawal and is not treated appropriately she might go to more severe withdrawal, seizure due to alcohol withdrawal however patient choose to leave against medical advice. Physical exam: HEENT: Normocephalic atraumatic pupils equal react to light and accommodation. Extraocular muscles intact, conjunctiva pink, oropharynx moist, no thrush, no exudate. Lymphatic: No lymphadenopathy Cardiovascular exam: S1, S2 was heard. No murmurs, rubs, gallops Lung: Clear on auscultation bilaterally, no wheeze, rale, rhonchi. GI: Abdominal soft, nondistended, nontenderness, positive bowel sounds. Extremity: No crepitus, cyanosis, edema. Pedal pulses present bilateral. Full range of motion. Skin: Normal turgor, no rash. Psych: Alert, oriented x3. Neurology: No focal deficits, cranial nerve II to XII grossly intact. This medical document was created using an electronic medical record system with [employer] direct computerized dictation system. Although this document has been carefully reviewed, there may still be some phonetic and typographical errors. These areas are purely typographical due to imperfections of the software programs, and do not reflect any compromise in the patient's medical care. Condition at Discharge: Guarded Final Diagnosis/Problems List Alcohol intoxication Alcohol withdrawal Viral URI History of DT Tobacco use Transaminitis Hypokalemia Discharge Disposition: AMA Discharge Statement: "Patient was advised to return to the ER or call 911 if any headaches, dizziness, shortness of breath, chest pain, abdominal pain, bleeding, fevers, or worsening of medical condition. Patient was counseled about treatment plan, medications, possible side effects, patientverbalized understanding. All questions were answered to the best of my ability. This discharge took greater then 30 minutes in planning, reviewing documentation, counseling the patient, and discussing with other team members." ASSESSMENT ASSESSMENT Assessment Date of Service: Apr 22, 2024 Billing Provider: VICKY MANZO MD Common Visit Codes: 23424-ZSZ/OBS DISCH DAY >30min VICKY MANZO MD Apr 24, 2024 14:13
== END 2024-04-22 13:35 | disposition left against medical advice (07) | DRG 113 ==
LOC: EDSEX 10:39 → EDBD 10:39 → ER 10:39 → TELE 19:54 → EDSEX 19:54 → TELE-WESTW 23:15 → TELE 23:15 → TELE-WESTW 23:48
PROVIDERS: ADMIT Hospitalist; ATTEND Student in an Organized Health Care Education/Training Program
DX: J06.9 Acute upper respiratory infection, unspecified (principal); E87.6 Hypokalemia; F10.120 Alcohol abuse with intoxication, uncomplicated; Z53.29 Procedure and treatment not carried out because of patient's decision for other reasons; F17.210 Nicotine dependence, cigarettes, uncomplicated; I10 Essential (primary) hypertension; F10.139 Alcohol abuse with withdrawal, unspecified; R74.01 Elevation of levels of liver transaminase levels; J44.89 Other specified chronic obstructive pulmonary disease; Z79.899 Other long term (current) drug therapy; Z90.710 Acquired absence of both cervix and uterus; Y90.8 Blood alcohol level of 240 mg/100 ml or more
CPT/HCPCS: 36415; 71045; 80048; 80053; 80307; 80320; 81001; 83735; 84100; 84484; 85025; 85610; 85730; 96361; 96374; 96375; 99291; G0378; J2405; J7060

== ENCOUNTER 2024-09-23 10:41 | Emergency (ER) | payer MEDICAID, OTHER ==
[~2024-09-23] VITALS: Ht 160 cm; Wt 55.6 kg
[~2024-09-23 10:41] MED LIST changes: +METO10TA4 PO
[2024-09-23 11:10] VITALS: BP 98/69; PULSE 63; RESP 18; TEMP 98.1; O2SAT 98
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
[2024-09-23] MEDS: KETOROLAC TROMETH 60MG/2ML VIAL IM ONE (11:35)
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
[2024-09-23] MEDS ORDERED: TRAM-626 PO (12:19)
== END 2024-09-23 12:29 | disposition home or self-care (01) ==
LOC: ER 10:41
DX: S42.021A Displaced fracture of shaft of right clavicle, initial encounter for closed fracture (principal); S29.011A Strain of muscle and tendon of front wall of thorax, initial encounter; F17.210 Nicotine dependence, cigarettes, uncomplicated; F12.90 Cannabis use, unspecified, uncomplicated; F41.9 Anxiety disorder, unspecified; F32.A Depression, unspecified; Z90.710 Acquired absence of both cervix and uterus; Z90.89 Acquired absence of other organs; Z79.899 Other long term (current) drug therapy; V89.2XXA Person injured in unspecified motor-vehicle accident, traffic, initial encounter; Y93.89 Activity, other specified; Y92.89 Other specified places as the place of occurrence of the external cause; Y99.8 Other external cause status
CPT/HCPCS: 71101; 73030; 96372; 99284; J1885